=== PATIENT | female | born 1955 | race Caucasian/White ===

== ENCOUNTER 2022-03-26 13:35 | Emergency (ER) | payer OTHER ==
[~2022-03-26] VITALS: Ht 160 cm; Wt 71.9 kg
[2022-03-26] MEDS ORDERED: iohexol 300mg/ml 100ml inj. ONE (17:12)
[2022-03-26 17:32] LABS: BASOPHILS # (AUTO) 0.1 X10'3 (0-0.2); BASOPHILS % (AUTO) 0.4 % (0-1); EOSINOPHILS # (AUTO) 0.2 X10'3 (0-0.9); EOSINOPHILS % (AUTO) 1.3 % (0-6); HEMATOCRIT 35.5 % (35.0-45.0); HEMOGLOBIN 11.8 g/dl (12.0-16.0); LYMPHOCYTES # (AUTO) 1.5 X10'3 (1.1-4.8); LYMPHOCYTES % (AUTO) 9.5 % (21-51); MEAN CORPUSCULAR HEMOGLOBIN 30.1 PG (27.0-31.0); MEAN CORPUSCULAR HGB CONC 33.2 g/dL (33.0-36.5); MEAN CORPUSCULAR VOLUME 90.9 FL (78-98); MEAN PLATELET VOLUME 7.3 FL (7.4-10.4); MONOCYTES % (AUTO) 5.9 % (2-12); NEUTROPHILS # (AUTO) 13.5 X10'3 (1.8-7.7); NEUTROPHILS % (AUTO) 82.9 % (42-75); PLATELET COUNT 538 X10'3 (140-440); RED BLOOD COUNT 3.91 X10'6 (4.20-5.60); RED CELL DISTRIBUTION WIDTH 12.5 % (11.5-14.5); WHITE BLOOD COUNT 16.3 X10'3 (4.5-11.0)
[2022-03-26 17:42] LABS: ALANINE AMINOTRANSFERASE 44 U/L (12-78); ALBUMIN 3.1 G/DL (3.4-5.0); ALBUMIN/GLOBULIN RATIO 0.6 (1.1-1.5); ALKALINE PHOSPHATASE 112 IU/L (46-116); ANION GAP 13 (8-16); ASPARTATE AMINO TRANSFERASE 23 U/L (10-37); BILIRUBIN,TOTAL 0.2 MG/DL (0.1-1.0); BLOOD UREA NITROGEN 48 MG/DL (7-18); BUN/CREATININE RATIO 22.6 (6.6-38.0); CHLORIDE 101 MMOL/L (99-107); CREATININE 2.12 MG/DL (0.40-0.90); GLUCOSE 131 MG/DL (70-104); POTASSIUM 5.8 MMOL/L (3.5-5.1); SODIUM 136 MMOL/L (135-145); TOTAL CARBON DIOXIDE 21.9 MMOL/L (24-32); TOTAL PROTEIN 8.5 G/DL (6.4-8.2); eGFR 23 ML/MIN
[2022-03-26 17:49] LABS: CALCIUM 13.5 MG/DL (8.5-10.1)
[2022-03-26] MEDS ORDERED: normal saline 1000ML IV soln IVB ONE ×2 (18:05→20:50)
[2022-03-26] MEDS ORDERED: clindamycin 600mg/D5W 50ml 50 ML IV ONE (18:05)
[2022-03-26] MEDS ORDERED: vancomycin/NS 1 GM ADD-VANTAGE 250 ML IV ONE (18:05)
[2022-03-26] MEDS ORDERED: calcitonin,salmon synthetic 200 units/ml inj SQ SCH (20:00)
[2022-03-26] MEDS ORDERED: dexamethasone sod phosphate 10mg/ml inj IV STA (20:26)
[2022-03-26] MEDS ORDERED: zoledronic acid/mannitol-water 100 ML IV ONE (20:55)
[2022-03-26 22:16] LABS: ALANINE AMINOTRANSFERASE 35 U/L (12-78); ALBUMIN 2.4 G/DL (3.4-5.0); ALBUMIN/GLOBULIN RATIO 0.5 (1.1-1.5); ALKALINE PHOSPHATASE 92 IU/L (46-116); ANION GAP 9 (8-16); ASPARTATE AMINO TRANSFERASE 8 U/L (10-37); BILIRUBIN,TOTAL 0.2 MG/DL (0.1-1.0); BLOOD UREA NITROGEN 43 MG/DL (7-18); BUN/CREATININE RATIO 22.1 (6.6-38.0); CALCIUM 10.5 MG/DL (8.5-10.1); CHLORIDE 108 MMOL/L (99-107); CREATININE 1.95 MG/DL (0.40-0.90); GLUCOSE 104 MG/DL (70-104); POTASSIUM 5.6 MMOL/L (3.5-5.1); SODIUM 140 MMOL/L (135-145); TOTAL CARBON DIOXIDE 23.5 MMOL/L (24-32); TOTAL PROTEIN 6.8 G/DL (6.4-8.2); eGFR 26 ML/MIN
[2022-03-27] MEDS: clindamycin 300mg/D5W 50mL 50 ML IV SCH ×2 (00:05→00:37)
[2022-03-27] MEDS ORDERED: clindamycin phosphate inj 300 MG in normal saline 50ml IV soln 48 ML IV SCH (07:49)
--- NOTE | 2022-03-27 10:38 | NUR ---
Pt resting quietly, continues to be monitored ,tolorated diet well. Disposition pending.
[2022-03-27 12:27] VITALS: BP 155/77
== END 2022-03-27 15:16 | disposition short-term general hospital (02) ==
LOC: ER 13:36
DX: K12.2 Cellulitis and abscess of mouth (principal); Z20.822 Contact with and (suspected) exposure to COVID-19
CPT/HCPCS: 36415; 70491; 80053; 82330; 83605; 83970; 84145; 85025; 87040; 87811; 93005; 96365; 96366; 96368; 96375; 99291; 99292; J1100; J3370; J3489; J3490; J7030; Q9967; 99285

== ENCOUNTER 2023-11-14 09:20 | Day surgery (SDC) | payer OTHER ==
[2023-11-11 15:49] LABS: BASOPHILS % (AUTO) 0.4 % (0-1); EOSINOPHILS # (AUTO) 0.3 X10'3 (0-0.9); EOSINOPHILS % (AUTO) 2.8 % (0-6); LYMPHOCYTES # (AUTO) 1.9 X10'3 (1.1-4.8); LYMPHOCYTES % (AUTO) 17.1 % (21-51); MEAN CORPUSCULAR HEMOGLOBIN 30.6 PG (27.0-31.0); MEAN CORPUSCULAR HGB CONC 33.1 g/dL (33.0-36.5); MEAN CORPUSCULAR VOLUME 92.4 FL (78-98); MONOCYTES # (AUTO) 0.8 X10'3 (0-0.9); MONOCYTES % (AUTO) 6.8 % (2-12); NEUTROPHILS # (AUTO) 8.2 X10'3 (1.8-7.7); NEUTROPHILS % (AUTO) 72.9 % (42-75); PRE OP HEMATOCRIT 32.7 % (35.0-45.0); PRE OP PLATELET COUNT 398 X10'3 (140-440); PRE OP WHITE BLOOD COUNT 11.2 10'3 (4.8-10.8); RED BLOOD COUNT 3.53 X10'6 (4.20-5.60); RED CELL DISTRIBUTION WIDTH 14.2 % (11.5-14.5)
[2023-11-11 15:52] LABS: PRE OP HEMOGLOBIN 10.8 g/dL (12.0-16.0)
[2023-11-11 16:05] LABS: ALBUMIN 2.8 G/DL (3.4-5.0); ALBUMIN/GLOBULIN RATIO 0.7 (1.1-1.5); ALKALINE PHOSPHATASE 68 IU/L (46-116); BLOOD UREA NITROGEN 28 MG/DL (7-18); BUN/CREATININE RATIO 12.3 (10.0-20.0); CALCIUM 8.5 MG/DL (8.5-10.1); CHLORIDE 107 MMOL/L (99-107); CREATININE 2.28 MG/DL (0.40-0.90); PRE OP ALT 21 U/L (30-65); PRE OP ANION GAP 11 (8-16); PRE OP AST 13 U/L (10-37); PRE OP BILIRUB, TOTAL 0.2 MG/DL (0.0-1.0); PRE OP GLUCOSE 106 MG/DL (70-104); PRE OP POTASSIUM 5.3 MMOL/L (3.4-5.1); PRE OP SODIUM 142 MMOL/L (135-145); TOTAL CARBON DIOXIDE 23.9 MMOL/L (24-32); TOTAL PROTEIN 6.7 G/DL (6.4-8.2); eGFR 21 ML/MIN
[2023-11-14] VITALS (8 sets, daily range): BP systolic 109–124; BP diastolic 53–74; PULSE 73–85; RESP 15–20; TEMP 96.8; O2SAT 94–100
[~2023-11-14] VITALS: Ht 160 cm; Wt 70.8 kg
[2023-11-14] MEDS: clindamycin-Cleocin 900mg/D5W 50 ML IV ONE (05:30)
[2023-11-14] MEDS: famotidine 20mg tablet PO ONE (05:30)
[2023-11-14] MEDS: gentamicin inj 300 MG in normal saline 100ml IV soln 92.5 ML IV ONE (05:30)
[2023-11-14] MEDS: ringers solution, lacted 1,000 ML IV SCH ×2 (05:30→12:17)
[~2023-11-14 09:20] MED LIST: ATOR10TA70 PO; BUPIVACAINE liposomal/PF 13.3 MG/ML vial IM ONE; BUPIVAcaine/PF 2.5mg/ml (0.25%) 10ml vial ONE; CHOL10005 PO; CYAN-34 PO; FERR236T3 PO; LAMO150T6 PO; LISI-643 PO; LORA-268 PO; MULT-1249 PO; OMEG100037 PO; QUET300T20 PO; RISP0.5T45 PO; SODI650T29 PO; methylene blue (5mg/ml) 50mg/10ml ampul IV ONE
[2023-11-14] MEDS ORDERED: sevoflurane 250ml liquid IH ONE (10:05)
[2023-11-14] MEDS ORDERED: labetalol 20mg/4ml (5mg/ml) syringe IV PRN (10:10)
[2023-11-14] MEDS ORDERED: ondansetron/PF 4mg/2ml inj IV PRN (10:10)
[2023-11-14] MEDS ORDERED: proCHLORperazine 10 MG/2 ml inj IV PRN (10:10)
[2023-11-14] MEDS ORDERED: morphine 4 MG/ML inj SYRINge IV PRN (10:10)
[2023-11-14] MEDS ORDERED: enalaprilat dihydrate 2.5mg/2ml vial IV PRN (10:10)
[2023-11-14] MEDS ORDERED: meperidine/PF 25mg/ml syringe IV PRN ×3 (10:10)
[2023-11-14] MEDS ORDERED: morphine 2 MG/ML inj. syringe IV PRN (10:10)
[2023-11-14] MEDS ORDERED: midazolam 1 mg/ML 2ml injection ONE (10:13)
[2023-11-14] MEDS ORDERED: fentaNYL/PF 50MCG/1 ML 2ML syringe ONE (10:13)
[2023-11-14] MEDS ORDERED: dexamethasone sod phosphate 4mg/ml inj. ONE (11:11)
[2023-11-14] MEDS ORDERED: LIDOcaine 1%/PF 5ML 10 MG/ML VIAL ONE (11:11)
[2023-11-14] MEDS ORDERED: propofol inj 20 ML IV ONE (11:11)
[2023-11-14] MEDS ORDERED: ondansetron/PF 4mg/2ml inj ONE (11:12)
[2023-11-14] MEDS ORDERED: ROPIVAcaine 0.5% (5mg/ml) 30ml vial ONE (11:12)
[2023-11-14] MEDS: LIDOcaine 1% (10mg/ml)w/preservative inj. 20ml MDV ONE (11:48)
[2023-11-14] MEDS: BUPIVAcaine/PF 2.5mg/ml (0.25%) 10ml vial IJ ONE (11:49)
== END 2023-11-14 13:16 | disposition home or self-care (01) ==
LOC: PAS 09:20
PROVIDERS: ATTEND Surgery
DX: C50.412 Malignant neoplasm of upper-outer quadrant of left female breast (principal); E66.9 Obesity, unspecified; Z68.27 Body mass index [BMI] 27.0-27.9, adult; I12.9 Hypertensive chronic kidney disease with stage 1 through stage 4 chronic kidney disease, or unspecified chronic kidney disease; N18.4 Chronic kidney disease, stage 4 (severe); F31.9 Bipolar disorder, unspecified; J44.9 Chronic obstructive pulmonary disease, unspecified; M19.90 Unspecified osteoarthritis, unspecified site; F17.210 Nicotine dependence, cigarettes, uncomplicated; Z79.899 Other long term (current) drug therapy; Z88.0 Allergy status to penicillin; Z98.890 Other specified postprocedural states
CPT/HCPCS: 19301; 36415; 38525; 38900; 64999; 76098; 80053; 82948; 85025; 93005; J1100; J1580; J2250; J2405; J2704; J2795; J3010; J3490; J7030; J7040; J7120; Q9968; Z7506; Z7508; Z7512; A4215; A4618; A7000; C9290